=== PATIENT | male | born 1995 ===

== ENCOUNTER 2017-01-19 13:20 | Emergency (ER) | payer OTHER ==
[~2017-01-19] VITALS: Ht 160 cm; Wt 71.0 kg
[2017-01-19 13:25] VITALS: TEMP 36.9; Ht 160 cm; Wt 71.0 kg
--- NOTE | 2017-01-19 13:57 | EMERGENCY ROOM VISIT NOTE ---
History First contact with patient: 13:35 Chief Complaint: ALLERGIC REACTION Stated Complaint: LIP SWOLLEN,INSECT BITE Nursing Triage Summary: pt was thinks he was bit by something 1 hr ago and has increased swelling to his upper lip and cheek no resp complaints History of Present Illness The patient is a 21 year old male who presents to the Emergency Room with complaints of being stung by a bee on his top lip prior to arrival. The patient denies any history of allergies to bees. He does not see what kind of bee stung him. He is complaining of a mild amount of discomfort of the lip and swelling. He has not taken anything [id number] for his symptoms. He denies any difficulty swallowing, swelling of the tongue or trouble breathing. The patient denies any other insect bites. He does report having an allergy to nuts. Review of Systems 10 system review performed and negative unless noted in HPI or below Past Medical/Surgical History Otherwise healthy Social History Smoking Status: Never Smoker Smokeless Tobacco Use: No Alcohol Use: none Marital Status: single Occupation Status: [employer] Current/Historical Medications Scheduled Prednisone (Prednisone), 50 MG PO DAILY Ranitidine (Zantac), 150 MG PO BID Allergies Coded Allergies: No Known Allergies (Unverified , 01/19/17) Physical Exam Vital Signs Date Time Temp Pulse Resp B/P (MAP) Pulse Ox O2 Delivery O2 Flow Rate FiO2 01/19/17 16:09 64 20 128/72 99 01/19/17 14:54 67 18 139/96 100 Room Air 01/19/17 13:25 36.9 78 18 155/97 100 Room Air Physical Exam VITALS: Vitals are noted on the nurse's note and reviewed by myself. Vital signs stable. GENERAL: 21-year-old male, in no acute distress, nondiaphoretic, well-developed well-nourished. SKIN: The skin was warm and dry HEAD: Localized amount of edema noted of the upper lip. No breaks in the skin noted. Normocephalic atraumatic. EYES:. Conjunctivae without injection, sclerae without icterus. Extraocular movements intact. MOUTH: Mucous membranes. No swelling noted in the oropharynx. Pharynx without erythema or exudate. Uvula midline. Airway patent. Tongue does not deviate. NECK: No lymphadenopathy. No JVD. HEART: Regular rate and rhythm without murmurs gallops or rubs. LUNGS: Clear to auscultation bilaterally without wheezes, rales or rhonchi. No accessory muscle use. ABDOMEN: Positive bowel sounds x 4.Soft, nontender, without organomegaly. No guarding or rebound tenderness. MUSCULOSKELETAL: No muscle atrophy, erythema, or edema noted. Strength 5/5 throughout. NEURO: Patient was alert and oriented to person place and time. Normal sensation to touch. No focal neurological deficits. Medical Decision & Procedures Medications Administered Medications (Trade) Dose Ordered Sig/Jeri Route Start Time Stop Time Status Last Admin Dose Admin Diphenhydramine HCl (Benadryl Cap) 50 mg NOW ONCE PO 01/19/17 14:00 01/19/17 14:01 DC 01/19/17 13:58 50 MG Ranitidine HCl (zANTac TAB) 150 mg NOW ONCE PO 01/19/17 14:00 01/19/17 14:01 DC 01/19/17 13:59 150 MG Prednisone (PredniSONE TAB) 40 mg NOW STAT PO 01/19/17 13:51 01/19/17 13:53 DC 01/19/17 13:59 40 MG ED Course The patient was seen and examined Vital signs were reviewed. Blood pressure is slightly high. Upon recheck, it is improved. The patient was notified of this. This is likely secondary to the patient's allergic reaction. The patient was given 1 dose of prednisone 40 mg, Benadryl 50 mg and Zantac 150 mg po He was observed in the emergency department for approximately 2 hours No further swelling was noted. Discharge instructions were reviewed, and the patient was discharged home in good condition Medical Decision Differential diagnosis: Allergic reaction, anaphylaxis, localized insect sting, airway compromise This patient is a 21-year-old otherwise healthy male that presents the ED after being stung by a bee. He has a localized swelling of the upper lip. There is no swelling in the oropharynx. No wheezing on exam. He was treated with oral medications with no worsening of his symptoms. He was observed for over 2 hours with no worsening of his symptoms. I believe he is stable to be discharged home. He was educated on worrisome symptoms such as difficulty swallowing, breathing or increased redness or swelling. He agrees to return to the emergency department if he has any such symptoms. Otherwise, he'll follow up with his family physician as needed Impression Primary Impression: Insect sting Departure Information Prescriptions Prednisone (PREDNISONE) 50 Mg Tab 50 MG PO DAILY for 4 Days, #4 TAB Prov: Temi Cedeño PA-C 01/19/17 Ranitidine (Zantac) 150 Mg Tab 150 MG PO BID for 3 Days, #6 TAB Prov: Temi Cedeño PA-C 01/19/17 Referrals No Doctor, Assigned (PCP) Patient Instructions [facility]
[2017-01-19] MEDS ORDERED: RANITIDINE HCL 150 MG TAB PO ONE (14:00)
[2017-01-19] MEDS ORDERED: PRED50TA PO (15:36)
[2017-01-19] MEDS ORDERED: ZNTT/150 PO (15:36)
[2017-01-19 16:09] VITALS: BP 128/72; PULSE 64; O2SAT 99
== END 2017-01-19 16:10 | disposition home or self-care (01) ==
LOC: C.EDB 13:23 → C.EDC 16:10
DX: S00.561A Insect bite (nonvenomous) of lip, initial encounter (principal); W57.XXXA Bitten or stung by nonvenomous insect and other nonvenomous arthropods, initial encounter